=== PATIENT | female | born 1990 | race African-American/Black ===

== ENCOUNTER 2024-10-17 01:45 | Emergency (ER) | payer MEDICAID ==
[~2024-10-17] VITALS: Ht 157.5 cm; Wt 53.8 kg
[2024-10-17 02:01] VITALS: BP 109/71; PULSE 79; RESP 16; TEMP 36.8; O2SAT 100
[2024-10-17] MEDS: IBUPROFEN 600MG TABLET PO ONE (03:43)
== END 2024-10-17 05:03 | disposition left against medical advice (07) ==
LOC: ER 01:45
DX: R10.31 Right lower quadrant pain (principal)
CPT/HCPCS: 76856; 99284